=== PATIENT | female | born 1975 | race Asian ===

== ENCOUNTER 2023-10-06 15:56 | Emergency (ER) | payer BC, SELFPAY ==
[2023-10-06 16:03] VITALS: BP 123/89
--- NOTE | 2023-10-06 17:09 | ED.SKININJ ---
HPI-Injury
General
Chief Complaint: Eye Problems
Source: patient
Exam Limitations: none
Time Seen by Provider: 10/06/23 16:27
Nursing documentation reviewed up to this point in time: agreed with
Travel History
Have you had any contact with someone who has COVID-19?: No
Do you have any symptoms of coronavirus? Fever > 100 degrees, chills, cough, shortness of breath, sore throat, loss of taste or smell, muscle aches, or headache?: No
History of Present Illness-Injury
Is this injury a work related problem?: No
Is pt an associate of [facility]?: No
Initial Injury comments:
Patient to ED with complaint of pain, redness, swelling to right upper eyelid. Symptoms started this week. She was seen at and placed on antibiotic eyedrops. States yesterday she was seen by ophthalmology RN but states no treatment was
prescribed. SHe states she has an friend who is an opthalmologist. Told by friend that she has preseptal cellulits and that she needs IV augmentin or IV keflex. Brought self to ED for eval.
Past History
Past History
ED Past Medical History: None
ED Past Surgical History: Gynecological (hysterectomy 2 weeks ago) and Orthopedic (Left knee surgery, left hand)
Social History
Tobacco: Non-smoker
Alcohol: None
Drug: None
Personal: Single
Living: alone
Review of Systems
Review of Systems
Allergies reviewed?: Yes
All Other Systems: ROS reviewed and negative except as documented in HPI and ROS
Constitutional: Reports no symptoms
EENT: Reports other (RIght uypper eyelid hordeolum)
Musculoskeletal: Reports no symptoms
Skin: Reports other (right upper eyelid hordeolum)
Neurological: Reports no symptoms
Psychiatric: Reports no symptoms
Phy Exam
General Physical Exam
General Presentation: well appearing and no apparent distress
General age: appears stated age
General Skin: warm and dry
General Habitus: normal
Eye Exam
Eye Exam: PERRL, EOMI, conjunctiva normal and globe normal
Conjunctival Changes: bilateral: none
Eyelid Exam: sty-hordeolum: Right (right upper eyelid)
Type of Exam: simple
Musculoskeletal Exam
Musculoskeletal Exam: full ROM
Skin Exam
Skin Exam: normal color, warm/dry and no rash
Psychiatric Exam
Psychiatric Exam: normal mood/affect
Course
Vital Signs
Initial and Last Documented VS:
Initial Vital Signs
Temp Pulse Resp BP Pulse Ox
98.0 F 93 20 123/89 96
10/06/23 16:03 10/06/23 16:03 10/06/23 16:03 10/06/23 16:03 10/06/23 16:03
Last Documented Vital Signs
Temp Pulse Resp BP Pulse Ox
98.0 F 93 20 123/89 96
10/06/23 16:03 10/06/23 16:03 10/06/23 16:03 10/06/23 16:03 10/06/23 16:03
*Critical Care Note
Total Time (30-74mins, 75-104mins- exclusive of procedures): Not Applicable
Update Note
Update Note:
Patient to ED with complaint of redness pain swelling to right upper lateral eyelid. Hordeolum identified. No evidence of preseptal cellulitis, periorbital celluilitis. EOMI, non pain with movement. Recommend warm compresses
ED Attending Note
-
Portions of this chart may have been created with voice recognition software.� Occasional wrong word or��sound alike� substitutions may have occurred due to the inherent limitations of voice recognition software.
Discharge Plan
Departure
Patient Disposition: Home (Routine Discharge)
Date of Disposition: 10/06/23
Time of Disposition: 17:07
Patient with high blood pressure during this ER visit?: No
Condition: Good
Covid-19: Not Applicable
Discharge Problem:
Hordeolum external
Instructions: Stye
Prescriptions:
No Action
No Current Medications
0
Activity Restrictions/Additional Instructions:
Warm compresses 15-20 minutes at a time, 4-5 times daily. Do not apply make-up. Do not squeeze eyelid. Take ibuprofen or acetaminophen for any discomfort.
Discharge Date and Time
Print Language: JAPANESE
== END 2023-10-06 17:40 | disposition home or self-care (01) ==
LOC: EMR 15:56
PROVIDERS: EMERGENCY PHYSICIAN Emergency Medicine; FAMILY PHYSICIAN Internal Medicine
DX: H00.011 Hordeolum externum right upper eyelid (principal)
CPT/HCPCS: 99282